=== PATIENT | female | born 1990 | race American Indian/Alaskan Native ===

== ENCOUNTER 2021-09-25 08:38 | Emergency (ER) | payer SELFPAY ==
[2021-09-25] MEDS ORDERED: SODIUM CHLORIDE 0.9% 1000 ML 1,000 ML IV ONE (09:19)
[2021-09-25] MEDS ORDERED: METOCLOPRAMIDE 10 MG/2 ML INJ IV ONE (09:20)
[2021-09-25] MEDS ORDERED: diphenhydrAMINE 50 MG/ML VIAL IV ONE (09:20)
--- NOTE | 2021-09-25 09:21 | Emergency Department Report ---
ED N/V/D HPI - General Chief complaint: Abdominal Pain Stated complaint: FEEL LIKE I'M DYING PUI?: No Time Seen by Provider: 09/25/21 09:15 Source: patient Mode of arrival: Wheelchair Limitations: No Limitations - History of Present Illness Initial comments: 31-year-old female presents to the ER today with complaints of nausea, vomiting and diarrhea since yesterday. Patient reports multiple episodes of vomiting and diarrhea since yesterday. She states that emesis was initially food and liquid, but now is just bilious. She reports no coffee-ground emesis or hematemesis. She reports watery diarrhea, multiple episodes, without hematochezia or melena or mucus. She reports diffuse abdominal pain. She denies any associated fever. She denies any UTI symptoms or any abnormal vaginal symptoms. She denies any apparent bad food intake, recent antibiotic use, or recent ill contacts or travel. She states that her last menstrual cycle was in July 2021. She states that she is not , she has a history of irregular menstrual cycles and she is not on control. She denies any known exposure to Covid and she has not gotten a COVID-19 vaccine. She denies any surgeries on her abdomen in the past. She denies ETOH or illicit drug use. MD complaint: nausea, vomiting, diarrhea, abdominal pain -: days(s) (1) - Related Data Previous Rx's Medication Instructions Recorded Last Taken Type Hyoscyamine Subl [Levsin Sl 0.125 0.125 mg SL Q6HR PRN #30 tab 09/25/21 Unknown Rx TAB] Ondansetron [Zofran Odt] 4 mg PO Q8HR #15 tab.rapdis 09/25/21 Unknown Rx Allergies Allergy/AdvReac Type Severity Reaction Status Date / Time No Known Allergies Allergy Verified 09/25/21 09:11 ED Review of Systems ROS: Stated complaint: FEEL LIKE I'M DYING Other details as noted in HPI Comment: All other systems reviewed and negative Constitutional: denies: chills, fever Respiratory: denies: cough, shortness of breath, wheezing Cardiovascular: denies: chest pain, palpitations Gastrointestinal: abdominal pain, nausea, vomiting. denies: diarrhea, constipation, hematemesis, melena, hematochezia Genitourinary: denies: urgency, dysuria, frequency, hematuria, discharge, abnormal menses, dyspareunia Musculoskeletal: denies: back pain, joint swelling, arthralgia Skin: denies: rash, lesions, change in color, change in hair/nails, pruritus Neurological: weakness. denies: headache, numbness, paresthesias, confusion, ab normal gait, vertigo Psychiatric: denies: anxiety, depression, auditory hallucinations, visual hallucinations, homicidal thoughts, suicidal thoughts Hematological/Lymphatic: denies: easy bleeding, easy bruising, swollen glands ED Past Medical Hx - Medications Home Medications: Home Medications Medication Instructions Recorded Confirmed Last Taken Type Hyoscyamine Subl [Levsin Sl 0.125 0.125 mg SL Q6HR PRN #30 tab 09/25/21 Unknown Rx TAB] Ondansetron [Zofran Odt] 4 mg PO Q8HR #15 tab.rapdis 09/25/21 Unknown Rx ED Physical Exam - General Limitations: No Limitations General appearance: alert, in distress (Patient appears uncomfortable, actively vomiting in the room) - Head Head exam: Present: atraumatic, normocephalic, normal inspection - Eye Eye exam: Present: normal appearance, PERRL, EOMI Pupils: Present: normal accommodation - Neck Neck exam: Present: normal inspection. Absent: full ROM - Respiratory Respiratory exam: Absent: respiratory distress - Cardiovascular Cardiovascular Exam: Present: regular rate - GI/Abdominal GI/Abdominal exam: Present: soft, tenderness (Diffuse abdominal tenderness). Absent: distended, rebound - Neurological Exam Neurological exam: Present: alert, oriented X3, CN II-XII intact, normal gait - Psychiatric Psychiatric exam: Present: normal affect, normal mood - Skin Skin exam: Present: intact ED Course Vital Signs 09/25/21 09/25/21 09/25/21 09:08 09:11 14:05 Temperature 98.4 F Pulse Rate 68 72 Respiratory 16 18 Rate Blood Pressure 104/72 110/70 [Right] O2 Sat by Pulse 98 97 100 Oximetry ED Medical Decision Making - Lab Data Result diagrams: 09/25/21 09:46 09/25/21 09:46 - Radiology Data Radiology results: report reviewed Patient: RUPERT FUENTES MR#: [id number] : 1990 Acct:[id number] Age/Sex: 31 / F ADM Date: 09/25/21 Loc: ED Attending Dr: Ordering Physician: EDUARD CANO Date of Service: 09/25/21 Procedure(s): CT abdomen pelvis w con Accession Number(s): [id number] cc: EDUARD CANO CT abdomen pelvis w con INDICATION: Abd pain/n/v/d OMNI 300 100ML . TECHNIQUE: All CT scans at this location are performed using CT dose reduction for ALARA by means of automated exposure control. COMPARISON: None available. FINDINGS: The included lung bases are clear. The liver, gallbladder, adrenal glands, kidneys, pancreas, and spleen demonstr ate no acute findings. There are no acute bowel abnormalities. The appendix appears normal. The uterus and ovaries appear normal for age. There is no abdominal or pelvic adenopathy. Visualized bones demonstrate no acute findings. IMPRESSION: 1. No acute findings. Signer Name: Pop Martinez MD Signed: 09/25/2021 12:17 PM Workstation Name: [id number] Transcribed By: RAMON Dictated By: Pop Martinez MD Electronically Authenticated By: Pop Martinez MD Signed Date/Time: 09/25/21 121 DD/ 121 TD/TT: - Medical Decision Making 1135: Patient was given IV fluids, she still getting, as well as Reglan, and Bentyl for pain. Patient currently still moaning in pain appears uncomfortable and she states that she still having abdominal pain. She states that is the vomiting has improved. We will add additional pain medication as well as antiemetics, and CT abdomen pelvis with IV contrast. CT abdomen pelvis shows nothing acute. CBC unremarkable. CMP showed that her sugar was 128, will repeat fingerstick was 100 which is normal; was mildly hypokalemic, but the remainder of her chemistries including lipase were unremarkable. hCG was negative. Urinalysis did not suggest UTI. Patient currently resting comfortably in the bed. She still reports feeling nauseous and so 1 more dose of Zofran was given prior to discharge. Overall patient is not toxic. She appears to be feeling better. Her vital signs are stable. She is neurologically intact. Patient symptoms at this time could be related to like a viral gastroenteritis. At this time there is no indication for any additional testing, admission, or GI/surgical consult. Discussed all results with patient. She will be sent home with medication to help her symptoms. Encouraged her to try to continue drinking lots of fluids to maintain hydration. She will be given discharge instructions on a bland diet. Patient expressed understanding of all instructions and agree with plan. Patient was stable at time of discharge. Critical care attestation.: If time is entered above; I have spent that time in minutes in the direct care of this critically ill patient, excluding procedure time. ED Disposition Clinical Impression: Gastroenteritis, Hypokalemia, Dehydration Disposition: HOME / SELF CARE / HOMELESS Is pt being admited?: No Does the pt Need Aspirin: No Condition: Stable Instructions: Viral Gastroenteritis, Adult, [id number], Food Choices to Help Relieve Diarrhea, Adult, Dehydration, Adult, [id number], Potassium Content of Foods, [place] Diet, Abdominal Pain (ED) Additional Instructions: I recommend that you take the Levsin, and Zofran as prescribed to help with nausea vomiting and abdominal cramps. If you continue to have diarrhea you can take Imodium from [id number]. Your potassium was mildly decreased, and I do recommend eating some potassium rich foods for the next 2 to 3 days. This will be given to you in your discharge instructions. Do recommend follow bland diet, and try to increase your fluid intake. I recommend close follow-up with your primary care doctor next week. If at any point your symptoms worsens, return to the ER. Prescriptions: Hyoscyamine Subl [Levsin Sl 0.125 TAB] 0.125 mg SL Q6HR PRN #30 tab PRN Reason: cramps Ondansetron [Zofran Odt] 4 mg PO Q8HR #15 tab.colbydis Referrals: DOE DUMONT MD [Staff Physician] - 3-5 Days Forms: Work/School Release Form(ED) Time of Disposition: 13:26
[2021-09-25] MEDS ORDERED: DICYCLOMINE 20 MG/2 ML INJ IM ONE (09:25)
[2021-09-25 10:05] LABS: Basophils % (Auto) 0.7 % (0.0-1.8); Hematocrit 39.9 % (30.3-42.9); Hemoglobin 13.1 gm/dl (10.1-14.3); Lymphocytes % (Auto) 29.6 % (13.4-35.0); Mean Corpuscular HGB Conc 33 % (30-34); Mean Corpuscular Volume 81 fl (79-97); Monocytes # (Auto) 0.3 K/mm3 (0.0-0.8); Monocytes % (Auto) 8.7 % (0.0-7.3); Platelet Count 193 K/mm3 (140-440); Red Blood Count 4.91 M/mm3 (3.65-5.03); Red Cell Distribution Width 14.9 % (13.2-15.2)
[2021-09-25 10:22] LABS: Alanine Aminotransferase 20 units/L (7-56); Albumin 4.5 g/dL (3.9-5); Blood Urea Nitrogen 9 mg/dL (7-17); Calcium 9.1 mg/dL (8.4-10.2); Hemolysis Index 18
[2021-09-25] MEDS ORDERED: ONDANSETRON 4 MG/2 ML INJ ONE (10:26)
[2021-09-25 10:28] LABS: BUN/Creatinine Ratio 15; Bilirubin,Direct < 0.2 mg/dL (0-0.2)
[2021-09-25] MEDS ORDERED: MORPHINE 4 MG/1 ML INJ IV ONE (11:35)
[2021-09-25] MEDS ORDERED: ONDANSETRON 4 MG/2 ML INJ IV ONE ×2 (11:35→13:36)
--- NOTE | 2021-09-25 12:22 | Cat Scan Report ---
CT abdomen pelvis w con INDICATION: Abd pain/n/v/d OMNI 300 100ML . TECHNIQUE: All CT scans at this location are performed using CT dose reduction for ALARA by means of automated e xposure control. COMPARISON: None available. FINDINGS: The included lung bases are clear. The liver, gallbladder, adrenal glands, kidneys, pancreas, and spleen demonstrate no acute findings. There are no acute bowel abnormalities. The appendix appears normal. The uterus and ovaries appear normal for age. There is no abdominal or pelvic adenopathy. Visualized bones demonstrate no acute findings. IMPRESSION: 1. No acute findings. Signer Name: Pop Martinez MD Signed: 09/25/2021 12:17 PM Workstation Name: [id number]
[2021-09-25 13:11] LABS: Bilirubin,Urine NEG (Negative); Blood,Urine NEG (Negative); Color,Urine Yellow (Yellow); Mucus,Urine FEW /HPF; Protein,Urine <15 mg/dL mg/dL (Negative); Urobilinogen,Urine < 2.0 mg/dL (<2.0)
[2021-09-25 14:06] VITALS: BP 110/70
== END 2021-09-25 14:05 | disposition home or self-care (01) ==
LOC: ED 08:38
DX: K52.9 Noninfective gastroenteritis and colitis, unspecified (principal); E87.6 Hypokalemia; E86.0 Dehydration
CPT/HCPCS: 36415; 74177; 80048; 80076; 81001; 83690; 84703; 85025; 96361; 96372; 96374; 96375; 99284; J0500; J1200; J2405; J2765; J7030; Q9967; Q0162